=== PATIENT | female | born 1960 | race Caucasian/White ===

== ENCOUNTER 2023-04-16 11:51 | Outpatient (CLI) | payer OTHER, SELFPAY ==
[2023-04-16 19:53] LABS: Alanine Aminotransferase 34 U/L (6-35); Albumin Level 4.1 g/dL (3.5-5.1); Alkaline Phosphatase 57 U/L (38-126); Anion Gap 3 mmol/L (8-16); Aspartate Amino Transferase 42 U/L (14-36); Bilirubin,Total 1.6 mg/dL (0.2-1.3); Blood Urea Nitrogen 20 mg/dL (7-17); Calcium 8.9 mg/dL (8.4-10.2); Carbon Dioxide 33 mmol/L (22-30); Chloride 103 mmol/L (98-107); Cholesterol 213 mg/dL (0-200); Estimated Glomerular Filt Rate > 60; Glucose 87 mg/dL (65-110); HDL Direct 68 mg/dL; Potassium 4.2 mmol/L (3.4-5.0); Sodium 139 mmol/L (137-145); Triglycerides 79 mg/dL (<150)
[2023-04-16 20:04] LABS: LDL Cholesterol Direct 108 mg/dL
[2023-04-16 20:14] LABS: Basophils Percent Auto 0.8 % (0.2-1.2); Eosinophils Absolute Auto 0.1 K/mm3 (0-0.3); Eosinophils Percent Auto 2.5 % (0-4.4); Hematocrit 42.8 % (37.0-47.0); Hemoglobin 13.5 g/dL (12.0-15.0); Immature Granulocyte Absolute 0.01 K/mm3 (0.00-0.031); Immature Granulocyte Percent A 0.3 % (0-0.5); Immature Platelet Fraction Pct 11.8 % (0.9-11.2); Lymphocytes Absolute Auto 1.31 K/mm3 (0.9-3.2); Mean Corpuscular HGB Conc 31.5 g/dl (32-36); Mean Corpuscular Hemoglobin 29.8 pg (26-34); Mean Corpuscular Volume 94.5 fl (80-100); Mean Platelet Volume 12.8 fl (7.4-10.4); Monocytes Absolute Auto 0.3 K/mm3 (0.1-0.6); Monocytes Percent Auto 7.6 % (2.6-8.5); Neutrophils Absolute Auto 2.2 K/mm3 (1.3-6.7); Neutrophils Percent Auto 55.8 % (45.5-73.1); Platelet Count Result 135 k/mm3 (150-375); Red Blood Count 4.53 M/mm3 (4.2-5.4); Red Cell Distribution Width 13.4 % (11.5-14.5)
[2023-04-16 21:23] LABS: Ovalocytes 1+ (NORMAL); Platelet Estimate Adequate (Adequate)
[2023-04-16 21:24] LABS: Schistocytes None Seen (NORMAL)
[2023-04-18 19:42] LABS: Apolipoprotein B 95 mg/dL (<90)
== END 2023-04-16 11:52 | disposition home or self-care (01) ==
PROVIDERS: PCP Internal Medicine; Visit Provider Nurse Practitioner
DX: E78.5 Hyperlipidemia, unspecified (principal); E55.9 Vitamin D deficiency, unspecified; Z13.29 Encounter for screening for other suspected endocrine disorder
CPT/HCPCS: 36415; 80053; 80061; 82172; 82306; 85025; 85055

== ENCOUNTER → 2023-04-25 09:42 | Outpatient (CLI) | payer OTHER, SELFPAY ==
--- NOTE | ~2023-04-25 | MM_ITS ---
EXAMINATION: MM screening chikis BI w cesilia HISTORY: Screening mammogram TECHNIQUE: Craniocaudal and mediolateral oblique 3-D tomosynthesis images were obtained and synthetic 2-D images were generated. CAD analysis was submitted and interpreted. COMPARISON: No prior mammogram is available for comparison at this institution. BREAST PARENCHYMAL COMPOSITION: There are scattered areas of fibroglandular density. FINDINGS: There is no evidence of suspicious mass, calcification, or architectural distortion to sugg est malignancy in either breast. IMPRESSION: 1. No mammographic evidence of malignancy. 2. Recommend routine screening mammography in one year. BI-RADS Category 1: Negative Reviewed, dictated and finalized at location A. Y FEED MIXING OPERATOR
== END ==
PROVIDERS: PCP Internal Medicine; Visit Provider Obstetrics & Gynecology
DX: Z12.31 Encounter for screening mammogram for malignant neoplasm of breast (principal)
CPT/HCPCS: 77063; 77067

== ENCOUNTER → 2023-05-05 13:06 | Outpatient (CLI) | payer OTHER, SELFPAY ==
--- NOTE | ~2023-05-05 | DEXA_ITS ---
Bone Density Report Name: GURINDER PEDROZA Age: 62 Sex: Female Ethnicity: White Date of : 1960 Indication: postmenopausal; screening for osteoporosis; Referring Provider: Maria D Elizabeth Study: Bone densitometry was performed. Exam Date: May 05, 2023 Accession number: [id number] Bone Density: Region BMD T-score Z-score Classification AP Spine (L1, L4) 1.234 1.8 3.3 Normal Femoral Neck (Left) 0.808 -0.4 1.0 Normal Total Hip (Left) 0.917 -0.2 0.8 Normal Femoral Neck (Right) 0.854 0.0 1.4 Normal Total Hip (Right) 0.979 0.3 1.3 Normal Total Hip Mean 0.948 0.1 1.1 Normal World Health Organization criteria for BMD impression classify patients as: Normal (T-score at or above -1.0), Osteopenia (T-score between -1.0 and -2.5), or Osteoporosis (T-score at or below -2.5). 10-year Fracture Risk: FRAX not reported because: All T-scores for Spine Total, Hip Total, Femoral Neck at or above -1.0 Clinical Information Provided by Patient: Has used the following medications: Vitamin D, MTV Patient maximum height was 66 Menopause Age: 57 Does not regularly consume dairy products Onset of menses at age 12 Number of children 2 Impression: The patient has normal bone mass. Discussion: BONE DENSITY IS ABOVE THE MINIMUM DESIRABLE LEVEL AT ALL SKELETAL SITES TESTED. This patient?s bone mineral density is above the minimum desirable level (T-score -1.0 or better) at all sites measured. The patient should follow a healthful lifestyle (good nutrition with adequate calcium and vitamin D, and appropriate weight-bearing exercise). Follow-Up: Consider repeating this study in 5 years or sooner if there is some new clinical indication. Reported by: [facility] on 05/05/2023 1:31:00 PM. Reviewed, dictated and finalized at location [facility]el[facility]uel[facility]
== END ==
PROVIDERS: PCP Nurse Practitioner; Visit Provider Nurse Practitioner
DX: Z78.0 Asymptomatic menopausal state (principal)
CPT/HCPCS: 77080

== ENCOUNTER 2023-06-19 08:25 | Outpatient (CLI) | payer OTHER, SELFPAY ==
[2023-06-19 17:48] LABS: Basophils Percent Auto 0.9 % (0.2-1.2); Eosinophils Absolute Auto 0.2 K/mm3 (0-0.3); Eosinophils Percent Auto 4.3 % (0-4.4); Hematocrit 44.9 % (37.0-47.0); Hemoglobin 13.7 g/dL (12.0-15.0); Lymphocytes Absolute Auto 1.13 K/mm3 (0.9-3.2); Lymphocytes Percent Auto 32.8 % (18.3-44.2); Mean Corpuscular HGB Conc 30.5 g/dl (32-36); Mean Corpuscular Hemoglobin 29.5 pg (26-34); Mean Corpuscular Volume 96.8 fl (80-100); Mean Platelet Volume 12.4 fl (7.4-10.4); Monocytes Absolute Auto 0.3 K/mm3 (0.1-0.6); Monocytes Percent Auto 9.6 % (2.6-8.5); Neutrophils Absolute Auto 1.8 K/mm3 (1.3-6.7); Neutrophils Percent Auto 52.4 % (45.5-73.1); Platelet Count Result 134 k/mm3 (150-375); Red Blood Count 4.64 M/mm3 (4.2-5.4); Red Cell Distribution Width 13.2 % (11.5-14.5); White Blood Count 3.5 K/mm3 (4.5-10.0)
[2023-06-19 18:11] LABS: Alanine Aminotransferase 27 U/L (6-35); Alkaline Phosphatase 51 U/L (38-126); Anion Gap 3 mmol/L (8-16); Aspartate Amino Transferase 45 U/L (14-36); Bilirubin,Total 1.1 mg/dL (0.2-1.3); Blood Urea Nitrogen 21 mg/dL (7-17); Calcium 9.3 mg/dL (8.4-10.2); Carbon Dioxide 34 mmol/L (22-30); Chloride 104 mmol/L (98-107); Estimated Glomerular Filt Rate > 60; Glucose 74 mg/dL (65-110); Potassium 4.9 mmol/L (3.4-5.0); Sodium 141 mmol/L (137-145)
== END 2023-06-19 08:26 | disposition home or self-care (01) ==
LOC: ANHGOSHLAB 08:26
PROVIDERS: PCP Nurse Practitioner; Visit Provider Nurse Practitioner
DX: D72.819 Decreased white blood cell count, unspecified (principal); R74.01 Elevation of levels of liver transaminase levels; D69.6 Thrombocytopenia, unspecified
CPT/HCPCS: 36415; 80053; 85025

== ENCOUNTER 2023-06-26 11:27 | Outpatient (CLI) | payer OTHER, SELFPAY ==
[2023-06-26 21:21] LABS: HIV 1/2 Ab P24 Ag Result Negative (Negative)
[2023-06-26 21:22] LABS: Hepatitis C Virus Antibody Negative (Negative)
[2023-06-26 22:00] LABS: Folic Acid > 20.0 ng/mL (2.76->20)
== END 2023-06-26 11:28 | disposition home or self-care (01) ==
LOC: ANHGOSHLAB 11:29
PROVIDERS: PCP Nurse Practitioner; Visit Provider Nurse Practitioner
DX: D72.818 Other decreased white blood cell count (principal); D69.6 Thrombocytopenia, unspecified
CPT/HCPCS: 36415; 82607; 82746; 86703; 86803; G0432

== ENCOUNTER 2023-07-29 10:50 | Outpatient (CLI) | payer OTHER, SELFPAY ==
[2023-07-29 11:12] LABS: Basophils Percent Auto 0.8 % (0.2-1.2); Eosinophils Absolute Auto 0.1 K/mm3 (0-0.3); Eosinophils Percent Auto 3.3 % (0-4.4); Hematocrit 44.9 % (37.0-47.0); Hemoglobin 14.6 g/dL (12.0-15.0); Immature Granulocyte Absolute 0.01 K/mm3 (0.00-0.031); Immature Granulocyte Percent A 0.3 % (0-0.5); Lymphocytes Absolute Auto 1.19 K/mm3 (0.9-3.2); Lymphocytes Percent Auto 30.1 % (18.3-44.2); Mean Corpuscular HGB Conc 32.5 g/dl (32-36); Mean Corpuscular Hemoglobin 30.3 pg (26-34); Mean Corpuscular Volume 93.2 fl (80-100); Mean Platelet Volume 11.1 fl (7.4-10.4); Monocytes Absolute Auto 0.3 K/mm3 (0.1-0.6); Monocytes Percent Auto 8.3 % (2.6-8.5); Neutrophils Absolute Auto 2.3 K/mm3 (1.3-6.7); Neutrophils Percent Auto 57.2 % (45.5-73.1); Platelet Count Result 161 k/mm3 (150-375); Red Blood Count 4.82 M/mm3 (4.2-5.4)
[2023-07-29 16:47] LABS: Alanine Aminotransferase 27 U/L (6-35); Albumin Level 4.5 g/dL (3.5-5.1); Alkaline Phosphatase 52 U/L (38-126); Anion Gap 4 mmol/L (4-12); Aspartate Amino Transferase 58 U/L (14-36); Bilirubin,Total 1.8 mg/dL (0.2-1.3); Blood Urea Nitrogen 24 mg/dL (7-17); Calcium 9.3 mg/dL (8.4-10.2); Carbon Dioxide 28 mmol/L (22-30); Chloride 104 mmol/L (98-107); Estimated Glomerular Filt Rate > 60; Glucose 76 mg/dL (65-110); Iron 147 ug/dL (37-170); Lactate Dehydrogenase 252 U/L (120-246); Potassium 4.6 mmol/L (3.4-5.0); Sodium 136 mmol/L (137-145)
[2023-07-29 16:56] LABS: Percent Iron Saturation 41 % (20-50)
[2023-07-29 18:21] LABS: Folic Acid > 20.0 ng/mL (2.76->20)
[2023-08-01 06:24] LABS: Methylmalonic Acid 138 nmol/L (87-318)
[2023-08-04 21:57] LABS: Platelet Antibody, Direct NEGATIVE (NEGATIVE)
[2023-08-05 19:04] LABS: ANA Pattern Nuclear, Speckled
[2023-08-06 14:16] LABS: Soluble Transferrin Receptor 1.51 mg/L (0.76-1.76)
== END 2023-07-29 10:51 | disposition home or self-care (01) ==
PROVIDERS: PCP Nurse Practitioner; Visit Provider Internal Medicine Hematology & Oncology
DX: D69.59 Other secondary thrombocytopenia (principal)
CPT/HCPCS: 36415; 80053; 82607; 82728; 82746; 83540; 83550; 83615; 83921; 84238; 85025; 86023; 86038; 86039

== ENCOUNTER 2023-08-12 10:32 | Outpatient (CLI) | payer OTHER, SELFPAY ==
--- NOTE | ~2023-08-12 | US_ITS ---
Abdominal Sonogram: Real-time sonographic imaging of the abdomen was performed. Clinical History: Secondary thrombocytopenia Findings: The liver appears normal with no evidence of mass lesion or bile duct dilatation. Main por kike vein demonstrates normal direction of flow. The spleen is normal in size without evidence of foca l lesion. The gallbladder is well distended, and appears normal with no evidence of gallstone or wal l thickening. The common bile duct measures 4 mm. The visualized pancreas, aorta, and IVC are unrema rkable. The right kidney measures 12.1 cm in length and the left kidney measures 12.0 cm. There is no hydronephrosis or renal calculus. Impression: Unremarkable abdominal ultrasound. Reviewed, dictated and finalized at location . Impression: Unremarkable abdominal ultrasound.
== END 2023-08-12 10:33 | disposition home or self-care (01) ==
LOC: ANHIMG 10:33
PROVIDERS: PCP Nurse Practitioner; Visit Provider Internal Medicine Hematology & Oncology
DX: D69.59 Other secondary thrombocytopenia (principal)
CPT/HCPCS: 76700

== ENCOUNTER 2023-12-17 11:37 | Outpatient (CLI) | payer OTHER, SELFPAY ==
[2023-12-17 11:55] LABS: Basophils Percent Auto 0.2 % (0.2-1.2); Eosinophils Absolute Auto 0.1 K/mm3 (0-0.3); Eosinophils Percent Auto 1.6 % (0-4.4); Hematocrit 41.9 % (37.0-47.0); Hemoglobin 13.6 g/dL (12.0-15.0); Immature Granulocyte Absolute 0.01 K/mm3 (0.00-0.031); Immature Granulocyte Percent A 0.2 % (0-0.5); Lymphocytes Absolute Auto 1.16 K/mm3 (0.9-3.2); Lymphocytes Percent Auto 26.5 % (18.3-44.2); Mean Corpuscular HGB Conc 32.5 g/dl (32-36); Mean Corpuscular Hemoglobin 29.8 pg (26-34); Mean Corpuscular Volume 91.9 fl (80-100); Mean Platelet Volume 10.6 fl (7.4-10.4); Monocytes Absolute Auto 0.3 K/mm3 (0.1-0.6); Monocytes Percent Auto 5.7 % (2.6-8.5); Neutrophils Absolute Auto 2.9 K/mm3 (1.3-6.7); Neutrophils Percent Auto 65.8 % (45.5-73.1); Platelet Count Result 151 k/mm3 (150-375); Red Blood Count 4.56 M/mm3 (4.2-5.4); Red Cell Distribution Width 12.3 % (11.5-14.5); White Blood Count 4.4 K/mm3 (4.5-10.0)
[2023-12-17 17:30] LABS: Alanine Aminotransferase 27 U/L (6-35); Albumin Level 4.1 g/dL (3.5-5.1); Alkaline Phosphatase 42 U/L (38-126); Anion Gap 7 mmol/L (4-12); Aspartate Amino Transferase 35 U/L (14-36); Blood Urea Nitrogen 21 mg/dL (7-17); Calcium 8.9 mg/dL (8.4-10.2); Carbon Dioxide 33 mmol/L (22-30); Chloride 97 mmol/L (98-107); Estimated Glomerular Filt Rate > 60; Glucose 98 mg/dL (65-110); Potassium 4.6 mmol/L (3.4-5.0); Sodium 137 mmol/L (137-145)
[2023-12-17 18:32] LABS: Folic Acid > 20.0 ng/mL (2.76->20)
== END 2023-12-17 11:38 | disposition home or self-care (01) ==
LOC: ANHLAB 11:38
PROVIDERS: PCP Nurse Practitioner; Visit Provider Internal Medicine Hematology & Oncology
DX: D64.9 Anemia, unspecified (principal)
CPT/HCPCS: 36415; 80053; 82607; 82746; 85025

== ENCOUNTER 2024-04-15 08:26 | Outpatient (CLI) | payer OTHER, SELFPAY ==
[2024-04-15 13:59] LABS: Cholesterol 249 mg/dL (0-200); HDL Direct 76 mg/dL; Triglycerides 65 mg/dL (<150)
[2024-04-15 14:10] LABS: LDL Cholesterol Direct 123 mg/dL
== END 2024-04-15 08:27 | disposition home or self-care (01) ==
LOC: ANHGOSHLAB 08:27
PROVIDERS: PCP Nurse Practitioner; Visit Provider Nurse Practitioner
DX: E78.2 Mixed hyperlipidemia (principal)
CPT/HCPCS: 36415; 80061

== ENCOUNTER 2024-06-15 08:54 | Outpatient (CLI) | payer OTHER, SELFPAY ==
[2024-06-15 09:05] LABS: Basophils Percent Auto 0.5 % (0.2-1.2); Eosinophils Absolute Auto 0.2 K/mm3 (0-0.3); Eosinophils Percent Auto 4.6 % (0-4.4); Hematocrit 44.5 % (37.0-47.0); Hemoglobin 14.5 g/dL (12.0-15.0); Immature Granulocyte Absolute 0.01 K/mm3 (0.00-0.031); Immature Granulocyte Percent A 0.3 % (0-0.5); Lymphocytes Absolute Auto 1.12 K/mm3 (0.9-3.2); Lymphocytes Percent Auto 30.1 % (18.3-44.2); Mean Corpuscular HGB Conc 32.6 g/dl (32-36); Mean Corpuscular Hemoglobin 29.9 pg (26-34); Mean Corpuscular Volume 91.8 fl (80-100); Monocytes Absolute Auto 0.3 K/mm3 (0.1-0.6); Monocytes Percent Auto 7.8 % (2.6-8.5); Neutrophils Absolute Auto 2.1 K/mm3 (1.3-6.7); Neutrophils Percent Auto 56.7 % (45.5-73.1); Platelet Count Result 149 k/mm3 (150-375); Red Blood Count 4.85 M/mm3 (4.2-5.4); Red Cell Distribution Width 12.9 % (11.5-14.5); White Blood Count 3.7 K/mm3 (4.5-10.0)
[2024-06-15 09:27] LABS: Anion Gap 6 mmol/L (4-12); Blood Urea Nitrogen 20 mg/dL (7-17); Calcium 9.6 mg/dL (8.4-10.2); Carbon Dioxide 31 mmol/L (22-30); Chloride 103 mmol/L (98-107); Estimated Glomerular Filt Rate > 60; Glucose 94 mg/dL (65-110); Potassium 4.7 mmol/L (3.4-5.0); Sodium 140 mmol/L (137-145)
[2024-06-15 10:34] LABS: Folic Acid 15.3 ng/mL (2.76->20)
== END 2024-06-15 08:55 | disposition home or self-care (01) ==
LOC: ANHLAB 08:55
PROVIDERS: PCP Nurse Practitioner; Visit Provider Internal Medicine Hematology & Oncology
DX: D64.9 Anemia, unspecified (principal)
CPT/HCPCS: 36415; 80048; 82607; 82746; 85025

== ENCOUNTER 2024-07-06 08:10 | Outpatient (CLI) | payer OTHER, SELFPAY ==
--- NOTE | ~2024-07-06 | MR_ITS ---
EXAMINATION: MR shoulder LT wo con DATE: 07/06/2024 08:48 INDICATION: Left shoulder pain TECHNIQUE: Magnetic resonance imaging (MRI) of the left shoulder was performed without intravenous co ntrast. Sequences included axial PD-weighted FS FSE, coronal oblique PD-weighted FS FSE, coronal obli que T2-weighted FS FSE, sagittal PD-weighted FS FSE, and sagittal T1-weighted SE. COMPARISON: None. FINDINGS: Coracoacromial arch: The acromion undersurface is curved in morphology (type II). The coracoacromial ligament is normal. M oderate acromioclavicular osteoarthritis. Rotator cuff: Moderate supraspinatus and mild infraspinatus tendinopathy. There is a small region of mild relative thinning of the tendon located at the critical zone of the supraspinatus tendon with lax appearance to some of the central ligament fibers consistent with a mild partial-thickness intrasubstance tear. The teres minor tendon and subscapularis tendons are normal. Normal rotator cuff muscle bulk and sign al. Biceps tendon, glenoid labrum and glenohumeral cartilage: Long head of the biceps tendon is normal. There is a small labral tear at the 3 and 4:00 position of the anterior glenoid labrum with associated para labral cyst which extends 2.0 cm medially along the anterior margin of the glenoid which measures 1.6 x 0.7 cm in maximal orthogonal dimensions. Glenohum eral cartilage is normal. Fluid: Physiologic amount of fluid in the glenohumeral joint and biceps tendon sheath. No loose osteochondr al bodies. Small amount of fluid and synovitis in the subacromial/subdeltoid bursa consistent with mi ld bursitis. Bones: Normal marrow signal with no edema, fracture or abnormal marrow replacing process. IMPRESSION: 1. Small labral tear with associated para labral cyst at the anterior glenoid. 2. Moderate supraspinatus tendinopathy with small mild intrasubstance tear at the critical zone. 3. Moderate acromioclavicular osteoarthritis. 4. Mild to moderate subacromial/subdeltoid bursitis. Reviewed, dictated and finalized at location B. COUNSELOR IMPRESSION: 1. Small labral tear with associated para labral cyst at the anterior glenoid. 2. Moderate supraspinatus tendinopathy with small mild intrasubstance tear at t he critical zone. 3. Moderate acromioclavicular osteoarthritis. 4. Mild to moderate subacromial/subdeltoid bursitis.
== END 2024-07-06 08:11 | disposition home or self-care (01) ==
PROVIDERS: PCP Nurse Practitioner; Visit Provider Nurse Practitioner
DX: M75.82 Other shoulder lesions, left shoulder (principal); M71.312 Other bursal cyst, left shoulder; M19.012 Primary osteoarthritis, left shoulder; M75.52 Bursitis of left shoulder
CPT/HCPCS: 73221

== ENCOUNTER 2024-07-13 14:50 | Emergency (ER) | payer OTHER, SELFPAY ==
[2024-07-13] MEDS: methylPREDNISolone SOD SUCC 125 MG VIAL IM (15:00)
[2024-07-13] MEDS: diphenhydrAMINE HCl INJ 50 MG/ML VIAL IM (15:01)
[2024-07-13] MEDS: FAMOTIDINE 20 MG TABLET PO (15:10)
[2024-07-13 15:11] VITALS: BP 158/87; PULSE 71; RESP 16; TEMP 36.2; O2SAT 100
--- NOTE | 2024-07-13 15:14 | ED.ALLEREA ---
HPI - Allergic Reaction General Chief complaint: Allergic Reaction Stated complaint: Allergic Reaction Time Seen by Provider: 07/13/24 14:56 Mode of arrival: ambulatory Limitations: no limitations History of Present Illness HPI narrative: 63-year-old female presents concern for allergic reaction. She reports around 12 30 today she was eating a bar with the pistachios in it, she then ate a bar with another type of nut. About 20 minutes later she began feeling like there was something in her throat. She denies swollen lips or tongue. Denies rash. Denies vomiting or diarrhea. She has has a similar reaction to nuts in the past. Denies syncope MD complaint: allergic reaction Related Data Allergies Allergy/AdvReac Type Severity Reaction Status Date / Time tree nut Allergy Intermediate Difficulty Verified 07/13/24 15:20 Breathing Review of Systems Review of Systems: CONSTITUTIONAL: Denies malaise, chills, sweats, or fever. ENT: Denies rhinorrhea, congestion, swollen lips or tongue. Reports feeling of something in her throat. CARDIOVASCULAR: Denies chest pain, palpitations, or edema. RESPIRATORY: Denies cough or dyspnea. GASTROINTESTINAL: Denies nausea, vomiting SKIN: Denies rash or itching. 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 Surgical History Surgical History Delivery by section (04/30/90) primary c/s Breech History of renal stent (~1999) Kidney stone removal - stent H/O eye surgery (~05/04/10) L eye - eyelashes growing into eye History of hysteroscopy (10/05/15) Endometrium and polyp-curettage and polypectomy - benign Family History Family History Father Hypertension Malignant neoplasm of skin Mother Cerebrovascular accident Social History Social History Smoking status: Never smoker Second hand tobacco smoke exposure: No Alcohol intake: never Substance use: never Substance use type: does not use Do You Feel Safe in your Home?: Yes Lack of Transportation: No Lack of Food: Never True Current Housing: Decline to Answer Concerned About Future Housing: Decline to Answer Difficulty Paying Gas/Electric Bills: Decline to Answer Difficulty Paying for Meds: Decline to Answer Currently Unemployed: Decline to Answer Education: Decline to Answer Difficulty w/ Childcare or Family Care: Decline to Answer Living arrangements: other Additional living arrangements comments: Occupation/Education: occupation 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 There is no relevant family history pertinent to the presenting complaint Exam Narrative: GENERAL: Well-appearing, well-nourished, and in no acute distress. HEAD: Normocephalic, atraumatic. EYES: PERRLA, sclera clear, and EOMI. No nystagmus. ENT: Nares clear, turbinates pink, no rhinorrhea or epistaxis. Mucous membranes moist. Oropharynx without erythema or lesions. Tonsils not enlarged and without exudate. No uvula, lip, or tongue swelling. No angioedema. NECK: Supple. CHEST: No respiratory distress. No wheezing, stridor. Clear to auscultation. No bony deformities, no asymmetry. Speaks in full sentences. HEART: Regular rate and rhythm. No murmur heard. Normal peripheral pulses. EXTREMITIES: Normal range of motion. No edema. Normal strength and sensation. SKIN: Warm, dry, no visible rash. NEURO: Alert and oriented x3. PSYCH: Normal mood and affect Course Course Emergency Course: Patient was evaluated upon arrival, exam as charted. Patient was given IM Solu-Medrol, IM Benadryl and PO Pepcid. Patient is aware of diagnosis, understands and agrees to treatment plan. Anticipatory guidance given. Patient agrees to follow-up as directed and is aware of reasons to seek care at the emergency department. Portions of this record may have been created with voice recognition software Level of Care: Express Care Visit Reevaluation(s) Reevaluation #1: Patient reports improvement of symptoms with medications given today. She still has no respiratory distress, lip or tongue swelling, angioedema, nausea, vomiting. Date: 07/13/24 Time: 15:40 Vital Signs Vital signs: Vital Signs Temperature 97.1 F L 07/13/24 15:11 Pulse Rate 71 07/13/24 15:11 Respiratory Rate 16 07/13/24 15:11 Blood Pressure 158/87 H 07/13/24 15:11 Pulse Oximetry 100 07/13/24 15:11 Temperature 97.1 F L 07/13/24 15:11 Pulse Rate 71 07/13/24 15:11 Respiratory Rate 16 07/13/24 15:11 Blood Pressure 158/87 H 07/13/24 15:11 Pulse Oximetry 100 07/13/24 15:11 Reviewed. MDM - Allergic Reaction MDM Narrative Medical decision making narrative: No soft palate or uvula edema, no tongue or lip edema or other mucosal involvement, no respiratory compromise, no stridor, no wheezing, no wheezing, no history of syncope, no hypotension, no nausea, vomiting, or diarrhea. Critical Care Time Critical Care Time Critical Care Time: No Discharge Plan Discharge Clinical Impression: Allergic reaction Patient Disposition: Home, Self-Care Condition: Stable Instructions: Food Allergy (ED) Additional Instructions: You may take 1-3 tabs of Benadryl (diphenhydramine) every 6 hours (you had a dose at 3pm) - this medicine may make you tired, so know how it affects you before you drive, work, make important decisions. You may also take a non-drowsy antihistamine such as Zyrtec or Karey once daily; you may double this dose for maximum effect. Medications that block stomach acid, such as Pepcid, also block histamine and can be helpful; take this once daily (you were given this medication today) If you have difficulty breathing, wheezing, swollen lips, swollen tongue, nausea, vomiting, diarrhea, pass out, have fever, itchy tongue, give difficulty swallowing please call 911 or go to the emergency room. Patient Language: Chadian Prescriptions: New epinephrine [EpiPen 2-Ramy] 0.3 mg/0.3 mL auto-injector 0.3 mg IM ONCE Qty: 2 0RF Rx Instructions: as a single dose; may repeat once No Action phentermine 37.5 mg tablet 37.5 mg PO DAILY Qty: 90 0RF Rx Instructions: must administer 30 minutes before or 1-2 hours after breakfast Follow-up/Referrals: PHYSICIAN,ASPHALT SPREADER OPERATOR [Primary Care Provider] - Time of Disposition: 15:40
[2024-07-13 15:42] VITALS: BP 135/81; PULSE 61; RESP 20; O2SAT 100
== END 2024-07-13 15:45 | disposition home or self-care (01) ==
PROVIDERS: Emergency Provider Nurse Practitioner
DX: T78.40XA Allergy, unspecified, initial encounter (principal); E78.5 Hyperlipidemia, unspecified; Z96.0 Presence of urogenital implants; Z86.007 Personal history of in-situ neoplasm of skin
CPT/HCPCS: 96372; 99214; A9270; G0463; J1200; J2919

== ENCOUNTER 2024-10-17 06:24 | Day surgery (SDC) | payer OTHER, SELFPAY ==
[2024-05-05 09:38] VITALS: BMI 27.6
--- OUTSIDE RECORDS SUMMARY | 2024-10-17 06:29 | XMS_ITS | Referral Summary ---
Author Organization [facility] Medical Office Building [facility] Address [address] [place] [address] Care Team Providers Care Kerrick Kleaner Operator Name Role Phone Trino Londono DO Primary Care Provider [phone] Allergies No known active allergies Medications cholecalciferol (VITAMIN D-3) 5,000 unit tablet Take 0.08 tablets (400 Units total) by mouth daily Active multivitamin tablet Take 1 tablet by mouth daily Active cyanocobalamin, vitamin B-12, 1,000 mcg tablet extended release Take by mouth Active Active Problems Problem Noted Date Diagnosed Date Acute cystitis without hematuria 04/08/2023 Assessment & Plan (04/08/2023 1:20 PM TOOLING MANAGER): Due to limitations with virtual visit physical assessment and labs deferred at this time. Pt was advised increase fluids, genital hygiene, and frequent voiding to assist with clearance of infection. Prescribed keflex She was advised of side effects, dosage, and use of antibiotics. Will send prescription for keflex to patient pharmacy. Instructed to patient on risk and benefits of medication. All red flags reviewed. Patient should follow up with PCP or report to ED for any worsening symptoms. Patient verbalized understanding and agreed to plan of care at this time. Trichiasis of left upper eyelid 12/29/2022 Trichiasis of right upper eyelid 12/29/2022 Closed nondisplaced fracture of base of fifth metacarpal bone of left hand 02/05/2022 Knee pain 01/27/2022 Pain in limb 01/27/2022 Postmenopausal bleeding 01/27/2022 Weight increased 01/27/2022 Hallux rigidus of right foot 11/09/2019 Overview (11/09/2019): Added automatically from request for surgery [id number] RUQ pain 04/14/2019 Overview (04/14/2019): Added automatically from request for surgery [id number] Assessment & Plan (04/21/2019 12:49 PM TOOLING MANAGER): The pain seems muscular. No worrisome signs. Will start Flexeril 7.5 mg every day at night and follow-up in 1 month. If the pain continued then imaging and colonoscopy. 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 Not on file Not on file Last Filed Vital Signs Vital Sign Reading Time Taken Comments Blood Pressure 129/84 01/11/2024 10:57 AM CDT Pulse 60 01/11/2024 10:57 AM CDT Temperature 36.6 C (97.8 F) 01/11/2024 10:57 AM CDT Respiratory Rate 18 11/02/2023 2:08 PM CDT Oxygen Saturation 98% 01/11/2024 10:57 AM CDT Inhaled Oxygen Concentration - - Weight 75.4 kg (166 lb 3.2 oz) 01/11/2024 10:57 AM CDT Height 167.6 cm (5' 5.98) 01/11/2024 10:57 AM C DT Body Mass Index 26.84 01/11/2024 10:57 AM CDT Plan of Treatment Not on file Insurance [facility] CHO[facility] PLUS [facility] Address: [address] [place] [address] [facility] Address: [address] [place] [address] [facility] Address: [place] [id number] Care Teams Kerrick Kleaner Operator Relationship Specialty Start Date End Date Trino Londono DO PCP - General Internal Medicine 02/26/22
--- OUTSIDE RECORDS SUMMARY | 2024-10-17 06:29 | XMS_ITS | Clinical Summary ---
Author Organization [facility] Medical Office Building [address] Address [address] [place] [address] Care Team Providers Care Corporate Director Of Human Resources Name Role Phone Trino Londono DO Primary Care Provider [phone]- [phone] Allergies No known active allergies Medications cholecalciferol (VITAMIN D-3) 5,000 unit tablet Take 0.08 tablets (400 Units total) by mouth daily Active multivitamin tablet Take 1 tablet by mouth daily Active cyanocobalamin, vitamin B-12, 1,000 mcg tablet extended release Take by mouth Active Active Problems Problem Noted Date Diagnosed Date Acute cystitis without hematuria 04/08/2023 Assessment & Plan (04/08/2023 1:20 PM ADMINISTRATIVE ANALYST): Due to limitations with virtual visit physical [...] (11/09/2019): Added automatically from request for surgery [id number] pain 04/14/2019 Overview (04/14/2019): Added automatically from request for surgery [id number] Assessment & Plan (04/21/2019 12:49 PM ADMINISTRATIVE ANALYST): The pain seems muscular. No worrisome signs. Will start Flexeril 7.5 mg every day at night and follow-up in 1 month. If the pain continued then imaging and colonoscopy. 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 Not on file Not on file Obstetrics History Last Filed Vital Signs Vital Sign Reading [...] 01/11/2024 10:57 AM CDT Plan of Treatment Health Maintenance Due Date Last Done Comments Breast Cancer Screening-Mammogram 1960 Cervical Cancer Screening 1960 Colon Cancer Screening-Colonoscopy 1960 Depression Screening 1960 Hepatitis C Screening 1960 DTaP/Tdap/Td Vaccine (1 - Tdap) 1972 Hepatitis B Screening 09/18/1979 Regular Well Visit/Exam 18-64 09/18/1979 Zoster Vaccine (1 of 2) 09/18/2011 Influenza Vaccine (Season Ended) 2025 Pneumococcal vaccine <65 Aged Out No longer eligible based on patient's age to complete this topic Insurance [facility] CHOICE PLUS Care Teams Corporate Director Of Human Resources Relationship Specialty Start Date End Date Trino Londono DO PCP - General Internal Medicine 02/26/22
--- OUTSIDE RECORDS SUMMARY | 2024-10-17 06:29 | XMS_ITS | Clinical Summary ---
Author Organization [facility] Address [address] [place] [address] Care Team Providers Care Manager Core Name Role Phone Unavailable Primary Care Provider Unavailabl e Source Comments [facility],non-owned Affiliates and Associated Physician Practices is amultiple site organization consisting of ambulatory clinics and hospital sitesin [place], [place], [place] and [place]. This disclosure is being madepursuant to the Care Everywhere program and may not contain all information available regarding this patient. Last updated 01/22/18.[employer] [facility] Allergies No known active allergies Medications * Be aware that medications may not be up to date on this document. Alwaysverify current medications with the patient. No known medications Immunizations Immunization Administration Dates Next Due MMR 07/22/2018,05/18/2018 Family History Medical History Relation Name Comments Hypertension Father Relation Name Status Comments Father Social History Tobacco Use Types Packs/Day Years Used Date Smoking Tobacco: Never Smokeless Tobacco: Never Comments Unknown Sex and Gender Information Value Date Recorded Sex Assigned at Not on file Legal Sex Female 8:18 AM MICE RAISER Gender Identity Not on file Sexual Orientation Not on file Last Filed Vital Signs Vital Sign Reading Time Taken Comments Blood Pressure 118/72 04/23/2018 9:14 AM MICE RAISER Pulse 72 04/23/2018 9:07 AM MICE RAISER Temperature 37.2 C (98.9 F) 05/18/2018 2:05 PM MICE RAISER Respiratory Rate 16 04/23/2018 9:07 AM MICE RAISER Oxygen Saturation 98% 04/23/2018 9:07 AM MICE RAISER Inhaled Oxygen Concentration - - Weight 69.9 kg (154 lb) 04/23/2018 9:07 AM MICE RAISER Height 170.2 cm (5' 7) 04/23/2018 9:07 AM MICE RAISER Body Mass Index 24.12 04/23/2018 9:07 AM MICE RAISER Plan of Treatment Health Maintenance Due Date Last Done Comments COLOGUARD (AGES 45-75) - COL ON CA SCREENING 1960 COLON MONITORING 1961 COLONOSCOPY - COLON CA SCREENING 1961 CT COLONOGRAPHY - COLON CA SCREENING 1960 Colorectal Cancer Screening 1961 FIT - COLON CA SCREENING 1961 FLEX SIG - COLON CA SCREENING 1961 LIPID TESTING 1960 MAMMOGRAM 1961 HIV SCREENING 1976 HEPATITIS C SCREENING 09/13/1979 DTAP/TDAP/TD VACCINES (1 - Tdap) 1980 PAP SMEAR 1982 PNEUMOCOCCAL VACCINE 50+ (1 of 1 - PCV) 09/18/2011 ZOSTER VACCINE (1 of 2) 09/18/2011 COVID-19 VACCINE (1 - 2023-2 5 season) 2024 DEPRESSION SCREENING 05/04/2024 INFLUENZA VACCINE (Season Ended) 2025 Respiratory Syncytial Virus (RSV) Vaccine Pt: or over 60 yrs (1 - 1-dose 75+ series) 2036 HEPATITIS B VACCINE Aged Out No longe r eligible based on patient's age to complete this topic HIB VACCINE Aged Out No longer eligi ble based on patient's age to complete this topic HPV VACCINE Aged Out No longer eligi ble based on patient's age to complete this topic MENINGOCOCCAL (Group B) VACC INE SHARED DECISION-MAKING Aged Out No longer eligibl e based on patient's age to complete this topic MENINGOCOCCAL GROUPS A/C/Y/W VACCINE Aged Out No longer eligible b ased on patient's age to complete this topic Insurance [facility] SELF PAY NO INSURANCE Member Subscriber Plan / Payer (Ef fective for All Dates) Name:Eleni Otero Member ID:Not on file Relation to Subscriber:Not on file Name:KASIAJAEELENI Subscriber ID:Not on file (Home) Address: [address] [place] [address] Payer ID:Not on file Group ID:Not on file Type:Self Pay Address: [place], [place] [employer] SELF PAY NO INSURANCE Member Subscriber Plan / Payer (Ef fective for All Dates) Name:Eleni Otero Member ID:Not on file Relation to Subscriber:Not on file Name:ELENI OTERO Subscriber ID:Not on file (Home) Address: [address] [place] [address] Payer ID:Not on file Group ID:Not on file Type:Self Pay Address: [place], [place] [employer] SELF PAY NO INSURANCE Member Subscriber Plan / Payer (Ef fective for All Dates) Name:Eleni Otero Member ID:Not on file Relation to Subscriber:Not on file Name:ELENI OTERO Subscriber ID:Not on file (Home) Address: [address] [place] [id number] Payer ID:Not on file Group ID:Not on file Type:Self Pay Address: [place], [place]
--- OUTSIDE RECORDS SUMMARY | 2024-10-17 06:29 | XMS_ITS | Clinical Summary ---
Author Organization [facility] Address [address] [place] [address] Care Team Providers Care Manager Pipeline Name Role Phone Trino Londono Primary Care Provider Allergies No known active allergies Medications multivitamin (DAILY-JHONATAN) tablet Take 1 Tablet by mouth daily. Active cholecalciferol, vitamin D3, 5,000 unit Take 400 Units by mouth daily. Active Active Problems No known active problems Encounters Date Type Department Care Team Description 09/27/2024 External Device Data STL ABSTRACTION Provider, Abstract 09/21/2024 External Device Data STL ABSTRACTION Provider, Abstract 09/20/2024 External Device Data STL ABSTRACTION Provider, Abstract 08/02/2024 External Device Data STL ABSTRACTION Provider, Abstract 07/20/2024 External Device Data STL ABSTRACTION Provider, Abstract from Last 3 Months Family History Medical History Relation Name Comments Heart Disease Brother Heart Disease Father Skin Cancer Father Diabetes Sister Heart Disease Sister Relation Name Status Comments Brother Alive Father Alive Mother Alive Sister Alive Son 1 Alive Son 2 Alive Social History Tobacco Use Types Packs/Day Years Used Date Smoking Tobacco: Never Smokeless Tobacco: Never Tobacco Cessation:Counseling Given: Not Answered Alcohol Use Standard Drinks/Week Comments Never 0 (1 standard drink = 0.6 oz pur e alcohol) Comments Unknown Sex and Gender Information Value Date Recorded Sex Assigned at Not on file Legal Sex Female 2:25 PM PATIENT RELATIONS LIAISON Gender Identity Not on file Sexual Orientation Not on file Last Filed Vital Signs Vital Sign Reading Time Taken Comments Blood Pressure 132/85 12/21/2023 3:33 PM CDT Pulse 66 12/21/2023 3:33 PM CDT Temperature 36.7 C (98 F) 12/21/2023 3:30 PM CDT Respiratory Rate 18 12/21/2023 3:30 PM CDT Oxygen Saturation 97% 12/21/2023 3:30 PM CDT Inhaled Oxygen Concentration - - Weight 72.1 kg (159 lb) 12/21/2023 3:30 PM CDT Height 167.6 cm (5' 6) 07/29/2023 10:10 AM CDT Body Mass Index 25.66 07/29/2023 10:10 AM CDT Plan of Treatment Upcoming Encounters Date Type Department Care Team (Late st Contact Info) Description 12/20/2024 1:15 PM CDT Office Visit [facility] Oncology and Hematology - [place] [address] [facility] [address] [place] [address] Shalom Holden MD [address] [facility] [address] [place] [address] Health Maintenance Due Date Last Done Comments Pre-Diabetes and Diabetes Screening 1961 DTAP/TDAP/TD VACCINES (1 - Tdap) 1980 HPV/Cotest (21-29) 1982 CERVICAL CANCER SCREENING 09/18/1991 HPV/Cotest (30-65) 09/18/1991 PAP SMEAR 09/18/1991 BREAST CANCER SCREENING 2001 COLORECTAL SCREENING 2006 Colorectal Cancer Screening 2006 FIT-DNA Q 3 years 2006 FIT/FOBT Q 1 year 2006 Flex Sig/CT Colonography Q 5 years 2006 ZOSTER VACCINE (1 of 2) 09/18/2011 INFLUENZA VACCINE (#1) 2023 RSV VACCINE (60+ or ) (1 - 1-dose 75+ series) 2036 Insurance [email or web address] [id number] Member Subscriber Plan / Payer (Ef fective 2023-Present) Name:Eleni Otero Relation to Subscriber:Self Name:Eleni Otero Payer ID:[id number] (NAIC) Type:HMO Address: [facility] [id number] [place] [id number] Care Teams Manager Pipeline Relationship Specialty Start Date End Date Trino Londono DO [address] [facility] [address] [place] [address] PCP - General Internal Medicine 07/02/23
[2024-10-17 06:43] VITALS: BMI 26.0
--- NOTE | 2024-10-17 07:02 | P.PNAN_ITS ---
Anes - Eval Final PreProcedure Day of Procedure 10/17/24 07:02 Heart: regular rate and rhythm Lungs: clear to auscultation Airway: Mallampati scale class IV Last oral intake: >/= 8 hours ASA classification: II Anesthetic plan: proceed Anesthesia type and monitoring: monitored anesthesia care Results Review: All pre-operative results and documents have been reviewed as part of the pre- operative evaluation. Informed Consent: The patient's anesthetic plan and its attendant risks and benefits were discussed with the patient/family/POA. Questions were solicited and answers provided to the satisfaction of the patient/family/POA.
[2024-10-17] MEDS: LACTATED RINGERS 1,000 ML 150 ML IV CONT (07:29)
[2024-10-17 07:30] VITALS: BP 123/86; PULSE 68; RESP 15; TEMP 34.1; O2SAT 100
--- NOTE | 2024-10-17 08:00 | PM.IMHP ---
H&P: HPI History of Present Illness Date/Time: 10/17/24 08:00 Chief Complaint: Screening colonoscopy Narrative: This is the patient's 2nd colonoscopy. There are no GI symptoms and there is no family history of colorectal cancer. 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 Surgical History Surgical History (Updated 08/11/24 @ 12:41 by Cesia Moore CMA) History of foot surgery Delivery by section (04/30/90) primary c/s Breech History of renal stent (~1999) Kidney stone removal - stent H/O eye surgery (~05/04/10) L eye - eyelashes growing into eye History of hysteroscopy (10/05/15) Endometrium and polyp-curettage and polypectomy - benign Family History Family History (Updated 08/11/24 @ 12:42 by Cesia Moore CMA) Father Hypertension Malignant neoplasm of skin Mother Cerebrovascular accident Sibling Diabetes mellitus Social History Social History Smoking status: Never smoker Second hand tobacco smoke exposure: No Alcohol intake: never Substance use: never Substance use type: does not use Do You Feel Safe in your Home?: Yes Lack of Transportation: No Lack of Food: Never True Current Housing: Decline to Answer Concerned About Future Housing: Decline to Answer Difficulty Paying Gas/Electric Bills: Decline to Answer Difficulty Paying for Meds: Decline to Answer Currently Unemployed: Decline to Answer Education: Decline to Answer Difficulty w/ Childcare or Family Care: Decline to Answer Living arrangements: other Additional living arrangements comments: Occupation/Education: occupation 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 Gender identity (if verbalized by the patient): Female Sexual Orientation (if Verbalized by the Patient): Straight or Heterosexual Meds Home Medications and Allergies Home Medications ?Medication ?Instructions ?Recorded ?Confirmed ?Type phentermine 37.5 mg tablet 37.5 mg PO DAILY #90 tabs 04/29/24 09/28/24 Rx epinephrine 0.3 mg/0.3 mL 0.3 mg (0.3 mL) IM ONCE #2 ea 07/13/24 09/28/24 Rx injection, auto-injector (EpiPen 2-Ramy) multivitamin (Daily Multi-Vitamin 1 tablet PO DAILY 09/28/24 10/17/24 History tablet) Allergies Allergy/AdvReac Type Severity Reaction Status Date / Time tree nut Allergy Intermediate Difficulty Verified 10/17/24 06:42 Breathing Vital Signs Vital Signs - 24 hr 10/17/24 07:30 Temperature 93.3 F L Pulse Rate 68 Respiratory Rate 15 Blood Pressure 123/86 Pulse Oximetry 100 Oxygen Delivery Room Air Exam Const: General: cooperative and healthy appearing Resp: Effort & Inspection: normal respiratory effort and able to speak in complete sentences Auscultation: clear to auscultation bilaterally Cardio: Rate: regular rate Rhythm: regular rhythm GI: Inspection: normal to inspection GI Palp: No No hepatosplenomegaly present Auscultation: normal bowel sounds Rectal Exam: deferred Skin: General skin exam: normal color Psych: Appearance: grossly normal Mental Status: mental status grossly normal Assessment and Plan Assessment and plan (1) Screening for colon cancer: Code(s): Z12.11 - Encounter for screening for malignant neoplasm of colon Status: Acute Assessment and Plan: The patient is deemed a good candidate for the procedure. Consent signed. Will proceed.
[2024-10-17 08:33] VITALS: BP 131/67; PULSE 65; RESP 16; O2SAT 100
--- NOTE | 2024-10-17 08:38 | WPDANESPN ---
Anes - Prog Note Post-Op Date/Time: 10/17/24 08:38 Vital Signs: Last Vital Signs Temp 93.3 F L 10/17/24 07:30 Pulse 65 10/17/24 08:33 Resp 16 10/17/24 08:33 BP 131/67 10/17/24 08:33 Pulse Ox 100 10/17/24 08:33 O2 Del Method Room Air 10/17/24 08:33 Pain Score (VAS): no pain I/O: Intake & Output 10/16/24 10/17/24 10/17/24 23:59 07:59 15:59 Intake Total 300 Balance 300 Patient Feedback: Patient satisfied with anesthetic care.
[2024-10-17 08:43] VITALS: BP 131/60; PULSE 71; RESP 16; O2SAT 100
[2024-10-17 08:53] VITALS: BP 144/101; PULSE 62; RESP 16; O2SAT 100
== END 2024-10-17 09:08 | disposition home or self-care (01) ==
PROVIDERS: PCP Nurse Practitioner; Visit Provider Internal Medicine Gastroenterology
PROC: 0DJD8ZZ Inspection of Lower Intestinal Tract, Via Natural or Artificial Opening Endoscopic (ICD-10-PCS; CPT 45378; principal; 2024-10-17 08:00)
DX: Z12.11 Encounter for screening for malignant neoplasm of colon (principal); K57.30 Diverticulosis of large intestine without perforation or abscess without bleeding
CPT/HCPCS: 45378

== ENCOUNTER 2024-11-02 14:01 | Outpatient (CLI) | payer OTHER, SELFPAY ==
--- NOTE | ~2024-11-02 | MM_ITS ---
EXAMINATION: MM screening chikis BI w cesilia HISTORY: Screening mammogram TECHNIQUE: Craniocaudal and mediolateral oblique 3-D tomosynthesis images were obtained and synthetic 2-D images were generated. CAD analysis was submitted and interpreted. COMPARISON: 04/25/2023 BREAST PARENCHYMAL COMPOSITION:Not Dense. There are scattered areas of fibroglandular density. FINDINGS: No suspicious mass, calcification, or architectural distortion are identified in either jonathan ast to suggest malignancy. There has been no suspicious interval change. IMPRESSION: No mammographic evidence of malignancy. Recommend routine screening mammography in one year. BI-RADS Category 1: Negative Reviewed, dictated and finalized at location .
== END 2024-11-02 14:02 | disposition home or self-care (01) ==
LOC: MICIMG 14:01
PROVIDERS: PCP Nurse Practitioner; Visit Provider Obstetrics & Gynecology
DX: Z12.31 Encounter for screening mammogram for malignant neoplasm of breast (principal)
CPT/HCPCS: 77063; 77067

== ENCOUNTER 2024-12-19 09:13 | Outpatient (CLI) | payer OTHER, SELFPAY ==
--- OUTSIDE RECORDS SUMMARY | 2024-12-19 09:44 | XMS_ITS | Clinical Summary ---
Author Organization [facility] Address [address] [place] [address] Care Team Providers Care Marine Pipe Welder Name Role Phone Trino Londono DO Primary Care Provider [phone]- [phone] Allergies No known active allergies Medications cholecalciferol (VITAMIN D-3) 5,000 unit tablet Take 0.08 tablets (400 Units total) by mouth daily Active multivitamin tablet Take 1 tablet by mouth daily Active cyanocobalamin, vitamin B-12, 1,000 mcg tablet extended release Take by mouth Active Active Problems Problem Noted Date Diagnosed Date Acute cystitis without hematuria 04/08/2023 Assessment & Plan (04/08/2023 1:20 PM INTERNAL MEDICINE HOSPITALIST): Due to limitations with virtual visit physical [...] (11/09/2019): Added automatically from request for surgery [id number] RUQ pain 04/14/2019 Overview (04/14/2019): Added automatically from request for surgery [id number] Assessment & Plan (04/21/2019 12:49 PM INTERNAL MEDICINE HOSPITALIST): The pain seems muscular. No worrisome signs. 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
--- OUTSIDE RECORDS SUMMARY | 2024-12-19 09:44 | XMS_ITS | Clinical Summary ---
Author Organization [facility] Address [address] [place] [address] Care Team Providers Care Pipe Fitter Welding Name Role Phone Unavailable Primary Care Provider Unavailabl e Source Comments [facility],non-owned Affiliates and Associated Physician Practices is amultiple site organization consisting of ambulatory clinics and hospital sitesin [place], [place], [place] and [place]. This disclosure is being madepursuant to the Care Everywhere program and may not contain all information available regarding this patient. Last updated 18.[employer] [facility] Allergies No known active allergies Medications * [...] on file Legal Sex Female 8:[address] Gender Identity Not on file Sexual Orientation Not on file Last Filed Vital Signs Vital Sign Reading Time Taken Comments Blood Pressure 118/72 04/23/2018 9:[address] JUDGE Pulse 72 04/23/2018 9:[address] JUDGE Temperature 37.2 C (98.9 F) 05/18/2018 2:[address] JUDGE Respiratory Rate 16 04/23/2018 9:[address] JUDGE Oxygen Saturation 98% 04/23/2018 9:[address] JUDGE Inhaled Oxygen Concentration - - Weight 69.9 kg (154 lb) 04/23/2018 9:[address] JUDGE Height 170.2 cm (5' 7) 04/23/2018 9:[address] JUDGE Body Mass Index 24.12 04/23/2018 9:[address] JUDGE Plan of Treatment Health Maintenance Due Date [...] 09/13/1979 DTAP/TDAP/TD VACCINES (1 - Tdap) 1980 PNEUMOCOCCAL VACCINE 50+ (1 of 1 - PCV) 09/18/2011 ZOSTER VACCINE (1 of 2) 09/18/2011 COVID-19 VACCINE (1 - 2023-2 5 season) 2024 DEPRESSION SCREENING 05/04/2024 INFLUENZA VACCINE (#1) 2025 Respiratory Syncytial Virus (RSV) Vaccine Pt: [...] patient's age to complete this topic Insurance [facility] SELF PAY NO INSURANCE Member Subscriber Plan / Payer (Ef fective for All Dates) Name:Eleni Otero Member ID:Not on file Relation to Subscriber:Not on file Name:KASIAJAEELENI Subscriber ID:Not on file (Home) Address: [address] [place] [address] Payer ID:Not on file Group ID:Not on file Type:Self Pay Address: [place], [place] [employer] SELF PAY NO INSURANCE Member Subscriber Plan / Payer (Ef fective for All Dates) Name:Eleni Otero Member ID:Not on file Relation to Subscriber:Not on file Name:ELENI OTERO Subscriber ID:Not on file (Home) Address: [address] [place] [address] Payer ID:Not on file Group ID:Not on file Type:Self Pay Address: [place], [place] [employer] SELF PAY NO INSURANCE Member Subscriber Plan / Payer (Ef fective for All Dates) Name:Eleni Otero Member ID:Not on file Relation to Subscriber:Not on file Name:ELENI OTERO Subscriber ID:Not on file (Home) Address: [address] [place] [id number] Payer ID:Not on file Group ID:Not on file Type:Self Pay Address: [place], [place]
--- OUTSIDE RECORDS SUMMARY | 2024-12-19 09:44 | XMS_ITS | Clinical Summary ---
Author Organization [facility] Address [address] [address] Care Team Providers Care Ball Truing Machine Operator Name Role Phone Trino Londono Primary Care Provider Allergies No known active allergies Medications multivitamin (DAILY-JHONATAN) tablet Take 1 Tablet by mouth daily. Active cholecalciferol, vitamin D3, 5,000 unit Take 400 Units by mouth daily. Active Active Problems No known active problems Encounters Date Type Department Care Team Description 12/06/2024 External Device Data STL ABSTRACTION Provider, Abstract 10/25/2024 External Device Data STL ABSTRACTION Provider, Abstract 09/27/2024 External Device Data STL ABSTRACTION Provider, [...] on file Legal Sex Female 2:25 PM WATCH DIAL STONER Gender Identity Not on file Sexual Orientation [...] Description 12/20/2024 1:15 PM CDT Office Visit [facility] Oncology and Hematology - [place] [address] [facility] [address] [place] [address] Shalom Holden MD [address] [facility] [address] [place] [address] Health Maintenance Due Date Last [...] 2006 ZOSTER VACCINE (1 of 2) 09/18/2011 Preventative Visit- Commercial 05/04/2024 INFLUENZA VACCINE (#1) 2024 RSV VACCINE (60+ or ) (1 - 1-dose 75+ series) 2036 Insurance [id number] Member Subscriber Plan / Payer (Ef fective 2023-Present) Name:Eleni Otero Relation to Subscriber:Self Name:Eleni Otero Payer ID:[id number] (NAIC) Type:HMO Address: [facility] [id number] [place] [id number] Care Teams Ball Truing Machine Operator Relationship Specialty Start Date End Date Trino Londono DO [address] [facility] [address] [place] [address] PCP - General Internal Medicine 07/02/23
[2024-12-19 09:58] LABS: Hematocrit 43.0 % (37.0-47.0); Hemoglobin 14.0 g/dL (12.0-15.0); Immature Granulocyte Percent A 0.3 % (0-0.5); Immature Platelet Fraction Pct 8.2 % (0.9-11.2); Lymphocytes Absolute Auto 0.94 K/mm3 (0.9-3.2); Mean Corpuscular HGB Conc 32.6 g/dl (32-36); Mean Corpuscular Hemoglobin 30.0 pg (26-34); Mean Corpuscular Volume 92.1 fl (80-100); Nucleated Red Blood Cells Absolute Auto 0.000 K/mm3 (0.0-0.012); Nucleated Red Blood Cells Perc 0.0 % (0.0-0.2); Platelet Count Result 130 k/mm3 (150-375); Red Blood Count 4.67 M/mm3 (4.2-5.4); White Blood Count 3.4 K/mm3 (4.5-10.0)
[2024-12-19 18:18] LABS: Alanine Aminotransferase 25 U/L (6-35); Albumin Level 4.4 g/dL (3.5-5.1); Alkaline Phosphatase 53 U/L (38-126); Anion Gap 5 mmol/L (4-12); Aspartate Amino Transferase 66 U/L (14-36); Bilirubin,Total 1.4 mg/dL (0.2-1.3); Blood Urea Nitrogen 13 mg/dL (7-17); Calcium 9.3 mg/dL (8.4-10.2); Carbon Dioxide 28 mmol/L (22-30); Chloride 103 mmol/L (98-107); Estimated Glomerular Filt Rate > 60; Glucose 81 mg/dL (65-110); Potassium 4.5 mmol/L (3.4-5.0); Sodium 136 mmol/L (137-145); Total Protein 8.0 g/dL (6.3-8.2)
[2024-12-19 19:38] LABS: Vitamin B12 457.0 pg/mL (239-931)
== END 2024-12-19 09:14 | disposition home or self-care (01) ==
PROVIDERS: PCP Nurse Practitioner; Visit Provider Internal Medicine Hematology & Oncology
DX: D64.9 Anemia, unspecified (principal)
CPT/HCPCS: 36415; 80053; 82607; 82746; 85025; 85055

== ENCOUNTER 2025-01-31 08:47 | Outpatient (CLI) | payer OTHER, SELFPAY ==
--- OUTSIDE RECORDS SUMMARY | 2025-01-31 09:07 | XMS_ITS | Clinical Summary ---
Author Organization [facility] Address [address] [place] [address] Care Team Providers Care Light Rail Transit Operator Name Role Phone Unavailable Primary Care Provider Unavailabl e Source Comments [facility],non-owned Affiliates and Associated Physician Practices is amultiple site organization consisting of ambulatory clinics and hospital sitesin [place], [place], [place] and [place]. This disclosure is being madepursuant to the Care Everywhere program and may not contain all information available regarding this patient. Last updated 18.[employer] [facility] [facility] [facility] [employer] Allergies No known active allergies Medications * [...] on file Legal Sex Female 8:18 AM RESTAURANT MANAGER Gender Identity Not on file Sexual Orientation Not on file Last Filed Vital Signs Vital Sign Reading Time Taken Comments Blood Pressure 118/72 04/23/2018 9:14 AM RESTAURANT MANAGER Pulse 72 04/23/2018 9:07 AM RESTAURANT MANAGER Temperature 37.2 C (98.9 F) 05/18/2018 2:05 PM RESTAURANT MANAGER Respiratory Rate 16 04/23/2018 9:07 AM RESTAURANT MANAGER Oxygen Saturation 98% 04/23/2018 9:07 AM RESTAURANT MANAGER Inhaled Oxygen Concentration - - Weight 69.9 kg (154 lb) 04/23/2018 9:07 AM RESTAURANT MANAGER Height 170.2 cm (5' 7) 04/23/2018 9:07 AM RESTAURANT MANAGER Body Mass Index 24.12 04/23/2018 9:07 AM RESTAURANT MANAGER Plan of Treatment Health Maintenance Due Date [...] 09/18/2011 ZOSTER VACCINE (1 of 2) 09/18/2011 DEPRESSION SCREENING 05/04/2024 COVID-19 VACCINE (1 - 2023-2 5 season) 2025 INFLUENZA VACCINE (#1) 2025 Respiratory Syncytial Virus [...] patient's age to complete this topic Insurance [facility] SELF PAY NO INSURANCE Member Subscriber Plan / Payer (Ef fective for All Dates) Name:Eleni Otero Member ID:Not on file Relation to Subscriber:Not on file Name:KASIAJAEELENI Subscriber ID:Not on file (Home) Address: [address] [place] [address] Payer ID:Not on file Group ID:Not on file Type:Self Pay Address: [place], [place] [employer] SELF PAY NO INSURANCE Member Subscriber Plan / Payer (Ef fective for All Dates) Name:Eleni Otero Member ID:Not on file Relation to Subscriber:Not on file Name:ELENI OTERO Subscriber ID:Not on file (Home) Address: [address] [place] [address] Payer ID:Not on file Group ID:Not on file Type:Self Pay Address: [place], [place] [employer] SELF PAY NO INSURANCE Member Subscriber Plan / Payer (Ef fective for All Dates) Name:Eleni Otero Member ID:Not on file Relation to Subscriber:Not on file Name:ELENI OTERO Subscriber ID:Not on file (Home) Address: [address] [place] [phone] Payer ID:Not on file Group ID:Not on file Type:Self Pay Address: [place], [place]
--- OUTSIDE RECORDS SUMMARY | 2025-01-31 09:07 | XMS_ITS | Clinical Summary ---
Author Organization [facility] Building [facility] Address [address] [place] [address] Care Team Providers Care Chinchilla Machine Operator Name Role Phone Trino Londono DO Primary Care Provider +1- [phone] Allergies No known active allergies Medications cholecalciferol (VITAMIN D-3) 5,000 unit tablet Take 0.08 tablets (400 Units total) by mouth daily Active multivitamin tablet Take 1 tablet by mouth daily Active cyanocobalamin, vitamin B-12, 1,000 mcg tablet extended release Take by mouth Active Active Problems Problem Noted Date Diagnosed Date Acute cystitis without hematuria 04/08/2023 Assessment & Plan (04/08/2023 1:20 PM HEATING WORKER): Due to limitations with virtual visit physical [...] (11/09/2019): Added automatically from request for surgery [id number] RUQ pain 04/14/2019 Overview (04/14/2019): Added automatically from request for surgery [id number] Assessment & Plan (04/21/2019 12:49 PM HEATING WORKER): The pain seems muscular. No worrisome signs. Will start Flexeril 7.5 mg every day at night and follow-up in 1 month. If the pain continued then imaging and colonoscopy. 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 Not on file Not on file Obstetrics History Last Filed Vital Signs Vital Sign Reading Time Taken Comments Blood Pressure 127/82 01/28/2025 8:16 AM CDT Pulse 67 01/28/2025 8:16 AM CDT Temperature 36.6 C (97.9 F) 01/28/2025 8:16 AM CDT Respiratory Rate 20 01/28/2025 8:16 AM CDT Oxygen Saturation 99% 01/28/2025 8:16 AM CDT Inhaled Oxygen Concentration - - Weight 70.7 kg (155 lb 12.8 oz) 01/28/2025 8:16 AM CDT Height 167.6 cm (5' 6) 01/28/2025 8:16 AM CDT Body Mass Index 25.15 01/28/2025 8:16 AM CDT Plan of Treatment Health Maintenance Due Date Last Done Comments Breast Cancer Screening-Mammogram 1961 Cervical Cancer Screening 1961 Colon Cancer Screening-Colonoscopy 1961 Depression Screening 1961 Hepatitis C Screening 1961 Hepatitis B Screening 09/18/1979 Regular Well Visit/Exam 18-64 09/18/1979 Influenza Vaccine (#1) 2025 , 04/20/2023, 02/04/2021, Additional history exists DTaP/Tdap/Td Vaccine (2 - Td or Tdap) 03/13/2034 03/13/2024 Zoster Vaccine Completed 10/22/2021, 08/07/2021 Pneumococcal vaccine <65 Aged Out No longer eligible based on patient's age to complete this topic Insurance [facility] CHOICE PLUS [place] [id number] [facility] CHOICE PLUS [place] [id number] Care Teams Chinchilla Machine Operator Relationship Specialty Start Date End Date Trino Londono DO PCP - General Internal Medicine 02/26/22
--- OUTSIDE RECORDS SUMMARY | 2025-01-31 09:07 | XMS_ITS | Clinical Summary ---
Author Organization [facility] [place] Address [address] [place] [address] Care Team Providers Care Buffet Server Name Role Phone Trino Londono Primary Care Provider Allergies No known active allergies Medications multivitamin (DAILY-JHONATAN) tablet Take 1 Tablet by mouth daily. Active cholecalciferol, vitamin D3, 5,000 unit Take 400 Units by mouth daily. Active Active Problems No known active problems Encounters Date Type Department Care Team Description 12/20/2024 1:15 PM CDT Office Visit [facility] Oncology and Hematology - [place] [address] [place] [phone] Shalom Holden MD Chronic anemia (Primary Dx) 12/20/[address] [facility] Oncology and Hematology - [place] [address] [place] [address] Shalom Holden MD 12/19/[address] [facility] Oncology and Hematology - [place] [address] [place] [address] Shalom Holden MD 12/06/2024 External Device Data STL ABSTRACTION Provider, [...] on file Legal Sex Female 2:25 PM MACHINE FASTENER Gender Identity Not on file Sexual Orientation Not on file Last Filed Vital Signs Vital Sign Reading Time Taken Comments Blood Pressure 116/73 12/20/2024 1:05 PM CDT Pulse 86 12/20/2024 1:05 PM CDT Temperature 36.8 C (98.2 F) 12/20/2024 1:05 PM CDT Respiratory Rate 15 12/20/2024 1:05 PM CDT Oxygen Saturation 97% 12/20/2024 1:05 PM CDT Inhaled Oxygen Concentration - - Weight 73.3 kg (161 lb 9.6 oz) 12/20/2024 1:05 P M CDT Height 167.6 cm (5' 6) 07/29/2023 10:10 AM CDT Body Mass Index 26.08 07/29/2023 10:10 AM CDT Plan of Treatment Upcoming Encounters Date Type Department Care Team (Late st Contact Info) Description 10/09/2025 10:00 AM CDT Office Visit [facility] Oncology and Hematology - [place] [address] [facility] [address] [place] [address] Shalom Holden MD [address] [facility] [address] [place] [address] Health Maintenance Due Date Last [...] (1 of 2) 09/18/2011 INFLUENZA VACCINE (#1) 2024 RSV VACCINE (60+ or ) (1 - 1-dose 75+ series) 2036 Procedures Procedure Name Priority Date/Time Associated Diagnosis Comments CBC WITH AUTODIFFERENTIAL Routine 2024 2:23 PM CDT COMPREHENSIVE METABOLIC PANEL Routine 12/19/2024 11:01 AM CDT from Last 3 Months Results * CBC WITH AUTODIFFERENTIAL (12/19/2024 2:23 PM CDT) Blood us Shalom Holden MD HEMATOLOGY ORDERABLES Final Res ult * COMPREHENSIVE METABOLIC PANEL (12/19/2024 11:01 AM CDT) Blood us Shalom Holden MD CHEMISTRY ORDERABLES Final Resu lt from Last 3 Months Insurance [employer] [facility] [id number] Care Teams Buffet Server Relationship Specialty Start Date End Date Trino Londono DO [address] [facility] [address] [place] [address] PCP - General Internal Medicine 07/02/23
[2025-01-31 10:04] LABS: Toxigenic C. Diff NEGATIVE (NEGATIVE)
== END 2025-01-31 08:48 | disposition home or self-care (01) ==
LOC: ANHLAB 08:48
PROVIDERS: PCP Nurse Practitioner; Visit Provider Nurse Practitioner
DX: R19.7 Diarrhea, unspecified (principal)
CPT/HCPCS: 87493

== ENCOUNTER 2025-02-22 09:42 | Outpatient (CLI) | payer OTHER, SELFPAY ==
--- OUTSIDE RECORDS SUMMARY | 2025-02-22 11:09 | XMS_ITS | Clinical Summary ---
Author Organization [facility] [place] Address [address] [place] [address] Care Team Providers Care Modeling Agency Manager Name Role Phone Trino Londono Primary Care Provider Allergies No known active allergies Medications multivitamin (DAILY-JHONATAN) tablet Take 1 Tablet by mouth daily. Active cholecalciferol, vitamin D3, 5,000 unit Take 400 Units by mouth daily. Active Active Problems No known active problems Encounters Date Type Department Care Team Description 12/20/2024 1:15 PM CDT Office Visit [facility] Oncology and Hematology - [place] [address] [place] [phone] Shalom Holden MD Chronic anemia (Primary Dx) 12/20/2024 Orders Only [facility] Oncology and Hematology - [place] [address] [place] [address] Shalom Holden MD 12/19/2024 Orders Only [facility] Oncology and Hematology - [place] [address] [place] [address] Shalom Holden MD 12/06/2024 External Device Data [...] on file Legal Sex Female 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 [address] [place] [address] Health Maintenance Due Date Last [...] Resu lt from Last 3 Months Insurance [employer] [facility] [id number] Care Teams Modeling Agency Manager Relationship Specialty Start Date End Date Trino Londono DO [address] [facility] [address] [place] [address] PCP - General Internal Medicine 07/02/23
--- OUTSIDE RECORDS SUMMARY | 2025-02-22 11:09 | XMS_ITS | Clinical Summary ---
Author Organization [facility] Address [address] [place] [address] Care Team Providers Care Utilities Ground Worker Name Role Phone Unavailable Primary Care Provider Unavailabl e Source Comments [facility],non-owned Affiliates and Associated Physician Practices is amultiple site organization consisting of ambulatory clinics and hospital sitesin [place], [place], [place] and [place]. This disclosure is being madepursuant to the Care Everywhere program and may not contain all information available regarding this patient. Last updated 18.[employer] [facility] Allergies No known active allergies Medications * [...] on file Legal Sex Female 8:18 AM OSTOMY RN Gender Identity Not on file Sexual Orientation Not on file Last Filed Vital Signs Vital Sign Reading Time Taken Comments Blood Pressure 118/72 04/23/2018 9:14 AM OSTOMY RN Pulse 72 04/23/2018 9:07 AM OSTOMY RN Temperature 37.2 C (98.9 F) 05/18/2018 2:05 PM OSTOMY RN Respiratory Rate 16 04/23/2018 9:07 AM OSTOMY RN Oxygen Saturation 98% 04/23/2018 9:07 AM OSTOMY RN Inhaled Oxygen Concentration - - Weight 69.9 kg (154 lb) 04/23/2018 9:07 AM OSTOMY RN Height 170.2 cm (5' 7) 04/23/2018 9:07 AM OSTOMY RN Body Mass Index 24.12 04/23/2018 9:07 AM OSTOMY RN Plan of Treatment Health Maintenance Due Date [...] patient's age to complete this topic Insurance [facility] SELF PAY NO INSURANCE Member Subscriber Plan / Payer (Ef fective for All Dates) Name:Eleni Otero Member ID:Not on file Relation to Subscriber:Not on file Name:KASIAJAEELENI Subscriber ID:Not on file (Home) Address: [address] [place] [address] Payer ID:Not on file Group ID:Not on file Type:Self Pay Address: [place], [place] [employer] SELF PAY NO INSURANCE Member Subscriber Plan / Payer (Ef fective for All Dates) Name:Eleni Otero Member ID:Not on file Relation to Subscriber:Not on file Name:ELENI OTERO Subscriber ID:Not on file (Home) Address: [address] [place] [address] Payer ID:Not on file Group ID:Not on file Type:Self Pay Address: [place], [place] [employer] SELF PAY NO INSURANCE Member Subscriber Plan / Payer (Ef fective for All Dates) Name:Eleni Otero Member ID:Not on file Relation to Subscriber:Not on file Name:ELENI OTERO Subscriber ID:Not on file (Home) Address: [address] [place] [id number] Payer ID:Not on file Group ID:Not on file Type:Self Pay Address: [place], [place]
--- OUTSIDE RECORDS SUMMARY | 2025-02-22 11:09 | XMS_ITS | Clinical Summary ---
Author Organization [facility] Medical Office [address] Address [address] [place] [address] Care Team Providers Care Tow Feeder Name Role Phone Trino Londono DO Primary Care Provider Allergies No known active allergies Medications cholecalciferol (VITAMIN D-3) 5,000 unit tablet Take 0.08 tablets (400 Units total) by mouth daily Active multivitamin tablet Take 1 tablet by mouth daily Active cyanocobalamin, vitamin B-12, 1,000 mcg tablet extended release Take by mouth Active Active Problems Problem Noted Date Diagnosed Date Acute cystitis without hematuria 04/08/2023 Assessment & Plan (04/08/2023 1:20 PM BURN CREW MEMBER): Due to limitations with virtual visit physical [...] (11/09/2019): Added automatically from request for surgery [id number] RUQ pain 04/14/2019 Overview (04/14/2019): Added automatically from request for surgery [id number] Assessment & Plan (04/21/2019 12:49 PM BURN CREW MEMBER): The pain seems muscular. No worrisome signs. Will start Flexeril 7.5 mg every day at night and follow-up in 1 month. If the pain continued then imaging and colonoscopy. 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
[2025-02-23 16:08] LABS: Deamidated Gliadin Abs, IgA 2 units (0-19); Deamidated Gliadin Abs, IgG 3 units (0-19); Immunoglobulin A, Qn 124 mg/dL (87-352)
== END 2025-02-22 09:43 | disposition home or self-care (01) ==
LOC: ANHGOSHLAB 09:43
PROVIDERS: PCP Nurse Practitioner
DX: R19.7 Diarrhea, unspecified (principal)
CPT/HCPCS: 82784; 86231; 86258

== ENCOUNTER 2025-02-28 07:37 | Outpatient (CLI) | payer OTHER, SELFPAY ==
--- NOTE | ~2025-02-28 | US_ITS ---
ULTRASOUND ABDOMEN LIMITED (RIGHT UPPER QUADRANT) Clinical History: R74.01 - Elevation of levels of liver transaminase levels Comparison: Abdominal ultrasound 08/12/2023 Technique: Right upper quadrant sonography Findings: Liver: Normal size. Normal echotexture. No intrahepatic biliary ductal dilatation. 2.5 cm cyst left lobe. Normal hepatopedal flow main portal vein. Common Duct: Normal caliber. 3 mm. Gallbladder: No stones. No wall thickening. No pericholecystic fluid. 5 mm polyp; no surveillance indicated given small size. Pancreas: Unremarkable. Right kidney: 2 cm cyst. Retrohepatic IVC: Unremarkable. IMPRESSION: 1. No acute findings. Reviewed, dictated and finalized at location R. IMPRESSION: 1. No acute findings.
== END 2025-02-28 07:38 | disposition home or self-care (01) ==
LOC: MICIMG 07:38
PROVIDERS: PCP Nurse Practitioner
DX: R74.01 Elevation of levels of liver transaminase levels (principal)
CPT/HCPCS: 76705